=== PATIENT | male | born 1935 | race Caucasian/White ===

== ENCOUNTER 2017-04-10 23:40 | Inpatient (IN) | payer MEDICARE, MEDICAID ==
[~2017-04-10] VITALS: Ht 175.3 cm; Wt 72.6 kg
[2017-04-11 00:13] LABS: BASOPHILS % 0.8 % (0.0-2.0); EOSINOPHILS % 1.2 % (0.0-5.0); HEMATOCRIT. 42.1 % (42.0-52.0); HEMOGLOBIN. 14.5 g/dL (14.0-18.0); LYMPHOCYTES % 14.3 % (20.0-50.0); MEAN CORPUSCULAR HEMOGLOBIN 29.5 pg (28.0-32.0); MEAN CORPUSCULAR VOLUME 85.6 fL (80.0-94.0); MEAN PLATELET VOLUME 7.6 fl (7.4-10.4); MONOCYTES % 4.4 % (2.0-8.0); NEUTROPHILS % 79.3 % (40.0-76.0); PLATELET 272 x1000/uL (130-400); RED BLOOD CELL COUNT 4.92 mill/uL (4.7-6.1); RED CELL DISTRIBUTION WIDTH 13.2 % (11.6-14.6)
[2017-04-11 00:19] LABS: INR 1.1; PROTHROMBIN TIME 10.9 sec (9.4-11.6)
[2017-04-11 00:28] LABS: CARBON DIOXIDE 30 mEq/L (21-32); CHLORIDE 104 mEq/L (98-107); TROPONIN I 0.06 ng/mL (0.00-0.04)
[2017-04-11] MEDS ORDERED: ACETAMINOPHEN 325MG TABLET PO PRN ×2 (07:45→08:45)
[2017-04-11] MEDS ORDERED: DOCUSATE SODIUM 100MG CAPSULE PO PRN (07:45)
[2017-04-11] MEDS ORDERED: ONDANSETRON HCL 4MG/2ML VIAL IV PRN (07:45)
[2017-04-11] MEDS ORDERED: MORPHINE SULFATE 4 MG/ML CPJ (NOT FOR IM USE) IV PRN (07:45)
[2017-04-11] MEDS ORDERED: CLONIDINE 0.1MG TABLET PO PRN (07:45)
[2017-04-11 08:00] VITALS: BP 134/61
[2017-04-11] MEDS ORDERED: SODIUM CHLORIDE 0.45% 1,000 ML IV SCH (08:00)
[2017-04-11] MEDS ORDERED: DEXTROSE 50% WATER 50ML SYRINGE IV PRN (08:30)
[2017-04-11] MEDS ORDERED: LORAZEPAM 0.5MG TABLET PO PRN (08:45)
[2017-04-11 09:00] VITALS: BP 134/61
[2017-04-11 09:41] LABS: AMMONIA < 25 uMol/L (<32)
[2017-04-11] MEDS: DOCUSATE SODIUM 100MG CAPSULE PO SCH ×2 (10:40→18:03)
[2017-04-11] MEDS: SODIUM CHLORIDE 0.9% 1,000 ML IV SCH ×2 (10:40→22:50)
[2017-04-11] MEDS: ENOXAPARIN 40MG/0.4ML SYR SUBCUT SCH (10:40)
[2017-04-11 12:00] VITALS: BP_SYST 126; BP_SYST 140; BP_DIAS 60; BP_DIAS 64
[2017-04-11 12:03] LABS: T4 FREE 1.06 ng/dL (0.76-1.46)
[2017-04-11] MEDS: BLOOD SUGAR DIAGNOSTIC STRIP TEST SCH ×3 (12:20→21:21)
[2017-04-11] MEDS: INSULIN LISPRO 100 UNITS/ML SUBCUT SCH ×3 (12:46→21:00)
[2017-04-11] MEDS: LORAZEPAM 2MG/ML CPJ IV PRN ×2 (14:33→21:26)
[2017-04-11 16:00] VITALS: BP 138/60
[2017-04-11] MEDS: IPRATROPIUM/ALBUTEROL 0.5-3(2.5)MG/3ML NEB INH SCH ×2 (17:02→20:15)
[2017-04-11] MEDS ORDERED: MULT-1146 PO (17:32)
[2017-04-11] MEDS ORDERED: LORA0.5T2 PO (17:32)
[2017-04-11] MEDS ORDERED: DOCU-138 PO (17:32)
[2017-04-11] MEDS ORDERED: ACET-2178 PO (17:32)
[2017-04-11 18:29] LABS: CREATINE KINASE MB FRACTION 1.9 ng/mL (0.5-3.6); TROPONIN I 0.07 ng/mL (0.00-0.04)
[2017-04-11 20:00] VITALS: BP_SYST 120; BP_SYST 138; BP_DIAS 65; BP_DIAS 78
[2017-04-12] VITALS: BP 136/76
[2017-04-12 00:24] LABS: CLARITY URINE CLEAR (CLEAR); COLOR URINE YELLOW (YELLOW); GLUCOSE URINE NEGATIVE (NEGATIVE); KETONES URINE NEGATIVE (NEGATIVE); LEUKOCYTE ESTERASE URINE NEGATIVE (NEGATIVE); NITRITE URINE NEGATIVE (NEGATIVE); OCCULT BLOOD URINE NEGATIVE (NEGATIVE); PH URINE 7.5 (4.5-8.0); PROTEIN URINE NEGATIVE (NEGATIVE); SPECIFIC GRAVITY URINE 1.014 (1.005-1.030)
[2017-04-12 01:20] LABS: *AMPHETAMINES SCREEN URINE NEGATIVE (NEGATIVE); *BARBITURATES SCREEN URINE NEGATIVE (NEGATIVE); *BENZODIAZEPINES SCREEN URINE NEGATIVE (NEGATIVE); *COCAINE SCREEN URINE NEGATIVE (NEGATIVE); CANNABINOID URINE SCREEN NEGATIVE (NEGATIVE); METHADONE URINE SCREEN NEGATIVE (NEGATIVE); OPIATES URINE SCREEN NEGATIVE (NEGATIVE); PHENCYCLIDINE URINE SCREEN NEGATIVE (NEGATIVE)
[2017-04-12] MEDS: IPRATROPIUM/ALBUTEROL 0.5-3(2.5)MG/3ML NEB INH SCH ×4 (01:35→20:30)
[2017-04-12 02:35] LABS: CREATINE KINASE MB FRACTION 2.2 ng/mL (0.5-3.6); TROPONIN I 0.08 ng/mL (0.00-0.04)
[2017-04-12 04:00] VITALS: BP 118/69
[2017-04-12] MEDS: BLOOD SUGAR DIAGNOSTIC STRIP TEST SCH ×3 (06:11→22:06)
[2017-04-12] MEDS: INSULIN LISPRO 100 UNITS/ML SUBCUT SCH ×3 (06:11→22:06)
[2017-04-12 06:31] LABS: BASOPHILS % 1.2 % (0.0-2.0); EOSINOPHILS % 2.5 % (0.0-5.0); LYMPHOCYTES % 21.4 % (20.0-50.0); MEAN CORPUSCULAR HEMOGLOBIN 29.2 pg (28.0-32.0); MEAN CORPUSCULAR VOLUME 85.3 fL (80.0-94.0); MEAN PLATELET VOLUME 7.8 fl (7.4-10.4); MONOCYTES % 8.9 % (2.0-8.0); PLATELET 254 x1000/uL (130-400); RED BLOOD CELL COUNT 4.46 mill/uL (4.7-6.1); RED CELL DISTRIBUTION WIDTH 12.9 % (11.6-14.6)
[2017-04-12 08:00] VITALS: BP 121/67
[2017-04-12 08:02] LABS: CARBON DIOXIDE 30 mEq/L (21-32); CHLORIDE 104 mEq/L (98-107)
[2017-04-12] MEDS: DOCUSATE SODIUM 100MG CAPSULE PO SCH ×2 (09:00→17:00)
[2017-04-12] MEDS: LORAZEPAM 2MG/ML CPJ IV PRN ×2 (11:08→16:59)
[2017-04-12 11:19] LABS: CREATINE KINASE MB FRACTION 1.9 ng/mL (0.5-3.6)
[2017-04-12 12:00] VITALS: BP 113/68
[2017-04-12] MEDS: SODIUM CHLORIDE 0.9% 1,000 ML IV SCH (13:30)
[2017-04-12] MEDS: ENOXAPARIN 40MG/0.4ML SYR SUBCUT SCH (13:30)
[2017-04-12 16:00] VITALS: BP 118/70
[2017-04-12 20:00] VITALS: BP 147/67
[2017-04-13] VITALS: BP 112/75
[2017-04-13] MEDS: IPRATROPIUM/ALBUTEROL 0.5-3(2.5)MG/3ML NEB INH SCH ×2 (01:35→08:22)
[2017-04-13] MEDS: SODIUM CHLORIDE 0.9% 1,000 ML IV SCH (02:15)
[2017-04-13 04:00] VITALS: BP 122/59
[2017-04-13] MEDS: BLOOD SUGAR DIAGNOSTIC STRIP TEST SCH ×2 (06:24→12:20)
[2017-04-13] MEDS: INSULIN LISPRO 100 UNITS/ML SUBCUT SCH ×2 (06:24→12:40)
[2017-04-13] MEDS: ENOXAPARIN 40MG/0.4ML SYR SUBCUT SCH (09:00)
[2017-04-13] MEDS: DOCUSATE SODIUM 100MG CAPSULE PO SCH (09:00)
[2017-04-13 09:08] VITALS: BP 121/79
[2017-04-13 12:06] VITALS: BP 121/79
[2017-04-13 12:35] VITALS: BP 146/72
== END 2017-04-13 14:42 | DRG 74 ==
LOC: ER 23:45 → 6WST 04-11 02:39 → ENRESERV 04-11 03:06
PROVIDERS: ADMIT Internal Medicine Nephrology; ATTEND Internal Medicine Nephrology
DX: G90.8 Other disorders of autonomic nervous system (principal); E44.1 Mild protein-calorie malnutrition; E11.9 Type 2 diabetes mellitus without complications; F41.9 Anxiety disorder, unspecified; R74.8 Abnormal levels of other serum enzymes; I10 Essential (primary) hypertension; W05.0XXA Fall from non-moving wheelchair, initial encounter; Y92.128 Other place in nursing home as the place of occurrence of the external cause; Y99.8 Other external cause status; Y93.89 Activity, other specified; Z86.73 Personal history of transient ischemic attack (TIA), and cerebral infarction without residual deficits; Z68.23 Body mass index [BMI] 23.0-23.9, adult; Z88.1 Allergy status to other antibiotic agents; Z79.899 Other long term (current) drug therapy
CPT/HCPCS: 36415; 70450; 70551; 71010; 80053; 80061; 80305; 81003; 82140; 82550; 82553; 82962; 83036; 83880; 84439; 84443; 84484; 85025; 85379; 85610; 87040; 87086; 93005; 93306; 93880; 93970; 94640; 97162; 97166; 99285; A6261; J1650; J2060; J7030; J7620